=== PATIENT | female | born 1960 | race Caucasian/White ===

== ENCOUNTER → 2017-03-01 | Outpatient (REF) ==
[~2017-03-01] MED LIST: COZAAR 25MG25 MG/TAB PO; DESYREL 100MG100 MG PO; DIOVAN160 MG PO; MULTIPLE VITAMI1 CAP PO; MVI PO; OSCAL 500MG/VI500 MG PO
== END ==
LOC: WSOH 16:15
DX: Z02.89 Encounter for other administrative examinations (principal)

== ENCOUNTER → 2017-05-03 | Outpatient (CLI) | payer OTHER | LOC: MC.RAD 07:00 | DX: Z12.31 Encounter for screening mammogram for malignant neoplasm of breast (principal) ==

== ENCOUNTER 2019-02-13 05:40 | Emergency (ER) | payer OTHER ==
[~2019-02-13] VITALS: Ht 182.9 cm; Wt 92.3 kg
[2019-02-13 06:04] VITALS: TEMP 98.6
[2019-02-13] MEDS ORDERED: ZOFRAN ODT4 MG PO (07:36)
[2019-02-13] MEDS ORDERED: PERCOCET 325 MG1 TA2 PO (07:36)
[2019-02-13 07:58] VITALS: BP 130/68; PULSE 65
== END 2019-02-13 08:18 | disposition home or self-care (01) ==
LOC: COL.ER 05:40
DX: S52.501A Unspecified fracture of the lower end of right radius, initial encounter for closed fracture (principal); S52.611A Displaced fracture of right ulna styloid process, initial encounter for closed fracture; I10 Essential (primary) hypertension; Z90.710 Acquired absence of both cervix and uterus; W19.XXXA Unspecified fall, initial encounter; Y92.39 Other specified sports and athletic area as the place of occurrence of the external cause
CPT/HCPCS: J2405; J3010; J7030

== ENCOUNTER 2019-02-15 05:36 | Day surgery (SDC) | payer OTHER ==
[~2019-02-15] VITALS: Ht 182.9 cm; Wt 90.6 kg
[~2019-02-15 05:36] MED LIST changes: +PERCOCET 325 MG1 TA2 PO; +ZOFRAN ODT4 MG PO
[2019-02-15 05:55] VITALS: BP 128/72; PULSE 80; TEMP 97.5
--- NOTE | 2019-02-15 06:49 | NUR ---
Patient to PACU with transport person, Walter, for block at this time.
[2019-02-15] MEDS ORDERED: TYLENOL W/COD1 UDTAB PO (08:43)
[2019-02-15 08:47] VITALS: BP 118/69; PULSE 78; TEMP 98.3
--- NOTE | 2019-02-15 08:47 | NUR ---
Patient arrives to [facility] bay 7 for recovery. She is alert and oriented. Lying on cart. Bedside report received. Monitoring applied - VSS and WNL on room air. Family brought to the bedside. Patient denies any pain or nausea. Operative site is covered by an orthopedic dressing, in sling. Nerve block remains in effect on RUE - unable to move or feel RUE. Fingers are warm, pink. Ice on operative site. Offered and receives water. Requests a boiled egg - ordered from dietary. Call light in reach.
[2019-02-15 09:00] VITALS: BP 114/75; PULSE 65
--- NOTE | 2019-02-15 09:00 | NUR ---
VSS and WNL on room air. RUE neurovascular assessment remains unchanged, stable with nerve block in effect. Denies any pain, nausea, or need at this time. Tolerating PO well.
[2019-02-15 09:15] VITALS: BP 113/85; PULSE 69
--- NOTE | 2019-02-15 09:15 | NUR ---
VSS and WNL on room air. Denies any pain, nausea, or need.
[2019-02-15 09:30] VITALS: BP 115/70; PULSE 64
[2019-02-15 09:45] VITALS: BP 115/69; PULSE 68
--- NOTE | 2019-02-15 10:10 | NUR ---
Discharge criteria has been met. Patient states "I'm ready to go home". PIV removed with catheter intact and hemostasis achieved. Changes to clothing with daughter's help. Sling on. Escorted to exit via wheelchair by hospital staff. DIscharged to home with ride in private vehicle at 1010.
== END 2019-02-15 10:10 ==
LOC: SDCO 05:36
DX: S52.551A Other extraarticular fracture of lower end of right radius, initial encounter for closed fracture (principal); J30.2 Other seasonal allergic rhinitis; Z88.0 Allergy status to penicillin; Z88.2 Allergy status to sulfonamides; Z88.6 Allergy status to analgesic agent; Z90.710 Acquired absence of both cervix and uterus; Z87.891 Personal history of nicotine dependence; Z82.49 Family history of ischemic heart disease and other diseases of the circulatory system; Z80.0 Family history of malignant neoplasm of digestive organs; Z80.3 Family history of malignant neoplasm of breast; Z82.62 Family history of osteoporosis; Z82.61 Family history of arthritis; Z91.013 Allergy to seafood
CPT/HCPCS: C1713; C1769; J0690; J1100; J2250; J2704; J2795; J3010; J7120

== ENCOUNTER 2019-04-23 14:00 | Outpatient (RCR) | payer OTHER ==
[~2019-04-23 14:00] MED LIST changes: +TYLENOL W/COD1 UDTAB PO
== END 2019-06-04 | disposition home or self-care (01) ==
LOC: WSOT
DX: S52.551A Other extraarticular fracture of lower end of right radius, initial encounter for closed fracture (principal); Z98.890 Other specified postprocedural states

== ENCOUNTER → 2019-06-15 | Outpatient (CLI) | payer OTHER | LOC: MC.RAD 07:38 | DX: Z12.31 Encounter for screening mammogram for malignant neoplasm of breast (principal) ==

== ENCOUNTER → 2020-05-14 | Outpatient (CLI) | payer OTHER | LOC: COL.RAD 13:35 | DX: M17.11 Unilateral primary osteoarthritis, right knee (principal); M71.21 Synovial cyst of popliteal space [Baker], right knee; M23.341 Other meniscus derangements, anterior horn of lateral meniscus, right knee ==

== ENCOUNTER → 2020-06-17 | Outpatient (CLI) | payer OTHER | LOC: MC.RAD 07:43 | DX: Z12.31 Encounter for screening mammogram for malignant neoplasm of breast (principal) ==

== ENCOUNTER 2020-07-08 08:30 | Inpatient (IN) | payer OTHER ==
[~2020-07-08] VITALS: Ht 180.3 cm; Wt 91.4 kg
[2020-08-20] VITALS (11 sets, daily range): BP systolic 98–132; BP diastolic 55–81; PULSE 58–93; TEMP 97.3–98.3
[2020-08-20] MEDS ORDERED: COZAAR 25MG25 MG/TAB PO (05:41)
[2020-08-20] MEDS ORDERED: ONE-A-DAY ESSE1 EACH PO (05:41)
[2020-08-20] MEDS ORDERED: CALCIUM WITH D31 CTB PO (05:42)
[2020-08-20] MEDS ORDERED: ZYRTEC 10MG10 MG PO (05:43)
[2020-08-20] MEDS ORDERED: VITAMIN C500 MG PO (05:44)
[2020-08-20] MEDS ORDERED: FOLIC ACID 40400 MCG PO (05:45)
[2020-08-20] MEDS ORDERED: NATURAL IRON65 MG PO (05:45)
[2020-08-21] VITALS (7 sets, daily range): BP systolic 98–120; BP diastolic 50–69; PULSE 69–79; TEMP 97.7–98.8
[2020-08-21 06:22] LABS: HEMATOCRIT 33.5 % (37.0-47.0)
[2020-08-22 04:05] VITALS: BP 110/62; PULSE 64; TEMP 98.5
[2020-08-22 08:00] VITALS: BP 113/61; PULSE 65; TEMP 97.4
[2020-08-22] MEDS ORDERED: SENOKOT S 50 MG1 TAB PO (10:04)
[2020-08-22] MEDS ORDERED: ASPI325T6 PO (10:04)
[2020-08-22] MEDS ORDERED: TYLENOL W/COD1 UDTAB PO (10:04)
[2020-08-22 12:30] VITALS: BP 113/63; PULSE 70; TEMP 98.5
== END 2020-08-22 15:01 | disposition home or self-care (01) | DRG 470 ==
LOC: JCC 08-20 05:17 → INPTSU 08-20 05:17 → JCC 08-20 07:30
PROVIDERS: ADMIT Orthopaedic Surgery
PROC: 0SRC0J9 Replacement of Right Knee Joint with Synthetic Substitute, Cemented, Open Approach (ICD-10-PCS; principal; 2020-08-20 07:30)
DX: M17.11 Unilateral primary osteoarthritis, right knee (principal)
CPT/HCPCS: A9284; C1776; J1885; J2250; J2405; J2704; J7120

== ENCOUNTER 2020-08-12 08:19 | Outpatient (RCR) | payer OTHER | END 2020-08-12 10:25 | disposition home or self-care (01) | LOC: WSC 08:19 | DX: M17.11 Unilateral primary osteoarthritis, right knee (principal) ==

== ENCOUNTER 2020-10-10 11:15 | Outpatient (RCR) | payer OTHER ==
[~2020-10-10 11:15] MED LIST changes: +ASPI325T6 PO; +CALCIUM WITH D31 CTB PO; +FOLIC ACID 40400 MCG PO; +NATURAL IRON65 MG PO; +ONE-A-DAY ESSE1 EACH PO; +SENOKOT S 50 MG1 TAB PO; +VITAMIN C500 MG PO; +ZYRTEC 10MG10 MG PO
== END 2020-11-21 11:05 | disposition home or self-care (01) ==
LOC: WSC 11:15
DX: Z01.818 Encounter for other preprocedural examination (principal); M17.11 Unilateral primary osteoarthritis, right knee

== ENCOUNTER → 2021-08-12 | Outpatient (CLI) | payer BC | LOC: MC.RAD 08:03 | DX: Z12.31 Encounter for screening mammogram for malignant neoplasm of breast (principal) ==

== ENCOUNTER → 2022-09-23 | Outpatient (CLI) | payer BC | LOC: MC.RAD 08:25 | DX: Z12.31 Encounter for screening mammogram for malignant neoplasm of breast (principal) ==

== ENCOUNTER → 2023-09-28 | Outpatient (CLI) | payer BC | LOC: MC.RAD 07:51 | DX: Z12.31 Encounter for screening mammogram for malignant neoplasm of breast (principal) ==